=== PATIENT | male | born 1970 | race Caucasian/White ===

== ENCOUNTER 2017-05-23 14:52 | Emergency (ER) | payer MEDICAID, OTHER ==
[2017-05-23] MEDS: predniSONE 20 MG TAB PO (15:30)
[2017-05-23] MEDS: ACETAMINOPHEN 325 MG TAB PO (15:30)
[2017-05-23] MEDS: ALBUTEROL 0.083% (NEB) 2.5 MG/3 ML AMP HHN (15:42)
== END 2017-05-23 17:07 | disposition home or self-care (01) ==
LOC: FTE 14:52
DX: J06.9 Acute upper respiratory infection, unspecified (principal); J45.901 Unspecified asthma with (acute) exacerbation
CPT/HCPCS: 71045; 94664; 99284-25